=== PATIENT | female | born 1995 | race Caucasian/White ===

== ENCOUNTER 2020-04-09 16:32 | Emergency (ER) | payer OTHER, SELFPAY ==
[2020-04-09 16:48] VITALS: BP 144/67; PULSE 73; RESP 16; TEMP 36.6; O2SAT 100
--- NOTE | 2020-04-09 16:49 | ED.GENADULT ---
HPI - General Adult General Chief complaint: Ear Stated complaint: Ear pain Time Seen by Provider: 04/09/20 16:50 Source: patient and RN notes reviewed Mode of arrival: ambulatory Limitations: no limitations History of Present Illness HPI narrative: 24-year-old female presents with complaints of bilateral otalgia for the past 4 days. Serene reports RT otalgia is worse than LT otalgia and has increased over the past 48 hours with moist feeling from RT ear. No treatment. Denies drainage, decrease hearing, or tinnitus. Denies injury to ear. Denies rhinorrhea and nasal congestion. Denies cough. No high fevers or chills. Denies nausea, vomiting, and dizziness. The patient reports she was diagnosed with COVID-19 on February 14, 2020. The patient reports she is not waiting for the results of a COVID-19 lab test. The patient reports she do not have fever, chills, weakness, or fatigue. The patient reports she do not have a new or worsening cough or shortness of breath. Denies chest pain. The patient reports she do not have any rhinorrhea, congestion, sore throat, loss of taste, and diarrhea. Tolerating po intake well. Denies recent traveling. Denies concerns for COVID-19 or exposures been home with limited outdoor exposure except for essential household needs, school, and return home. At this time, patient is not suspected of having COVID-19. Some parts of this dictation were generated by voice recognition software and may contain typographical and/or grammatical inaccuracies. Related Data Allergies Allergy/AdvReac Type Severity Reaction Status Date / Time Sulfa (Sulfonamide Allergy Hives Verified 04/09/20 16:43 Antibiotics) Review of Systems Review of Systems: Narrative: CONSTITUTIONAL: Denies fever, chills, sweats. EYES: Denies visual changes, redness, discharge. ENT: Denies sore throat, ear drainage, decrease hearing, rhinorrhea, congestion. Complains of bilateral otalgia. CARDIOVASCULAR: Denies chest pain, palpitations, edema. RESPIRATORY: Denies dyspnea, wheezing, cough. GASTROINTESTINAL: Denies abdominal pain, nausea, vomiting, diarrhea. SKIN: Denies rash or itching. MUSCULOSKELETAL: Denies acute back pain, joint pain, or myalgia. NEUROLOGIC: Denies numbness or focal weakness. PSYCHIATRIC: Denies anxiety or depression. All systems reviewed & are unremarkable except as noted in HPI and below. [facility] Past Medical History Medical History (Updated 04/10/20 @ 00:00 by Sera Ricketts) No significant past medical history Surgical History Surgical History (Updated 04/09/20 @ 17:15 by LEONARD Sharma) History of tonsillectomy History of tympanostomy Family History Family History (Updated 04/09/20 @ 17:16 by LEONARD Sharma) Father Hypertension Mother Diabetes mellitus Social History Social History (Updated 04/09/20 @ 17:18 by LEONARD Sharma) Smoking status: Former smoker Tobacco type: cigarettes Second hand tobacco smoke exposure: No Smoking end date: 03/29/10 Alcohol intake: current Alcohol use details: rarely Substance use: never Living arrangements: with family Occupation/Education: student Gender identity (if verbalized by the patient): Female Sexual Orientation (if Verbalized by the Patient): Straight or Heterosexual Comments At time of signature, agree with nurse past medical, surgical, social, and family history. There is relevant patient's past medical history pertinent to the presenting complaint, no relevant family history pertinent to the presenting complaint. Exam Narrative: Exam Narrative: GENERAL: This is a well-nourished, well-developed patient, in no apparent distress. Talks in full sentences and ambulates with steady gait without dyspnea HEAD: Normocephalic, atraumatic. EYES: PERRL. Sclera clear/white. Vision is grossly intact. EARS: Pinna is normal shape and contour. Clear external auditory canals. LT TM pearly goddard wit
[2020-04-09 17:09] VITALS: BP 122/64
== END 2020-04-09 17:09 | disposition home or self-care (01) ==
PROVIDERS: Emergency Provider Nurse Practitioner Family
DX: H66.001 Acute suppurative otitis media without spontaneous rupture of ear drum, right ear (principal); Z87.891 Personal history of nicotine dependence
CPT/HCPCS: 99213; G0463